=== PATIENT | female | born 1995 | race Caucasian/White ===

== ENCOUNTER 2020-08-11 00:31 | Emergency (ER) | payer OTHER ==
[~2020-08-11 00:31] MED LIST: BENTYL10 MG PO; CERTAGEN1 EACH PO; CIPRO500 MG PO; IBUPROFEN800 MG PO; ILOTYCIN1 GM OU; METRONIDAZOLE500 MG PO; NAPROXEN500 MG PO; NORCO 5-325 TA1 EACH PO; NORCO 7.5-3251 EACH PO; PERCOCET 5-3251 EACH PO; POLYETHYLENE GL17 GM PO; PREDNISONE10 MG PO; PRENATAL FORMU1 EACH PO; SPRINTEC 28 DA1 EACH PO; TRIAMCINOLONE 080 GM TOP; ZOFRAN4 MG PO; ZOFRAN8 MG PO
[2020-08-11] MEDS ORDERED: MEDROL 4MG DOSEP4 MG PO (03:56)
[2020-08-11] MEDS ORDERED: IBUPROFEN800 MG PO (03:56)
[2020-08-11] MEDS ORDERED: NORCO 5-325 TA1 EACH PO (03:56)
[2020-08-11] MEDS ORDERED: ROBAXIN750 MG PO (03:56)
== END 2020-08-11 04:14 | disposition home or self-care (01) ==
LOC: FER 00:31
DX: M62.838 Other muscle spasm (principal); J45.909 Unspecified asthma, uncomplicated; F17.200 Nicotine dependence, unspecified, uncomplicated; Z79.899 Other long term (current) drug therapy
CPT/HCPCS: 99283; J1885; J7512

== ENCOUNTER 2021-07-01 22:10 | Emergency (ER) | payer OTHER ==
[~2021-07-01 22:10] MED LIST changes: +MEDROL 4MG DOSEP4 MG PO; +ROBAXIN750 MG PO
[2021-07-02] MEDS ORDERED: NORCO 5-325 TA1 EACH PO (01:30)
[2021-07-02] MEDS ORDERED: MEDROL 4MG DOSEP4 MG PO (01:30)
[2021-07-02] MEDS ORDERED: IBUPROFEN800 MG PO (01:30)
[2021-07-02] MEDS ORDERED: SUDAFED 24-HOU240 MG PO (01:30)
== END 2021-07-02 02:20 | disposition home or self-care (01) ==
LOC: FER 22:10
DX: H92.02 Otalgia, left ear (principal); F17.200 Nicotine dependence, unspecified, uncomplicated
CPT/HCPCS: 99282; J1885; J7512

== ENCOUNTER 2021-10-01 21:03 | Day surgery (SDCO) | payer OTHER ==
[~2021-10-01] VITALS: Ht 167.6 cm; Wt 109.0 kg
[~2021-10-01 21:03] MED LIST changes: +AUGMENTIN 875-1 EACH PO; +SUDAFED 24-HOU240 MG PO
[2021-10-01 21:48] LABS: BILIRUBIN NEGATIVE (NEGATIVE); BLOOD NEGATIVE Ery/uL (NEGATIVE); CLARITY CLEAR (CLEAR); COLOR YELLOW (YELLOW); GLUCOSE (U) NORMAL (NORMAL); LEUKOCYTES NEGATIVE Leu/uL (NEGATIVE); NITRITE NEGATIVE (NEGATIVE); PROTEIN NEGATIVE (NEGATIVE); SPECIFIC GRAVITY 1.025 (1.001-1.030); UROBILINOGEN 0.2 mg/dL (0.2-1.0)
[2021-10-01 22:16] LABS: BASOPHIL 0.3 % (0-2); EOSINOPHIL 3.5 % (0-5); HCT 41.6 % (37.0-47.0); HGB 13.7 g/dl (12.5-16.0); LYMPHOCYTE 14.3 % (15-48); MCH 27.2 pg (25.0-31.0); MCHC 32.9 g/dL (32.0-36.0); MCV 82.7 fL (78.0-100.0); MONOCYTE 7.3 % (0-12); MPV 9.9 fL (6.0-9.5); NRBC 0; PLT 317 K/uL (150-400); RBC 5.03 M/uL (4.20-5.40); RDW 13.3 % (11.5-14.0); WBC 20.1 K/uL (4.0-10.5)
[2021-10-01 22:36] LABS: ALBUMIN 3.2 g/dL (3.4-5.0); BILIRUBIN - TOTAL 0.6 mg/dL (0.2-1.0); BUN/CREAT RATIO (CALC) 13.1 RATIO; CREATININE 0.61 mg/dL (0.51-0.95); GLOBULIN (CALCULATION) 4.1 g/dL; POTASSIUM 3.9 mmol/L (3.5-5.1); TOTAL PROTEIN 7.3 g/dL (6.4-8.2)
[2021-10-01 22:51] LABS: INFLUENZA A NAA NEGATIVE (NEGATIVE)
[2021-10-01 22:53] LABS: CORONAVIRUS 2019 SARS-COV-2 POSITIVE (NEGATIVE)
[2021-10-02 07:43] LABS: HCT 38.9 % (37.0-47.0); HGB 12.9 g/dl (12.5-16.0); MCH 27.6 pg (25.0-31.0); MCHC 33.2 g/dL (32.0-36.0); MCV 83.1 fL (78.0-100.0); MPV 10.2 fL (6.0-9.5); RBC 4.68 M/uL (4.20-5.40); RDW 13.4 % (11.5-14.0); WBC 20.5 K/uL (4.0-10.5)
[2021-10-02 07:48] LABS: INR 1.25 (0.9-1.2)
[2021-10-02 08:00] LABS: ALBUMIN 3.1 g/dL (3.4-5.0); BILIRUBIN - TOTAL 0.7 mg/dL (0.2-1.0); BUN/CREAT RATIO (CALC) 11.3 RATIO; CREATININE 0.71 mg/dL (0.51-0.95); GLOBULIN (CALCULATION) 3.7 g/dL; POTASSIUM 3.6 mmol/L (3.5-5.1); TOTAL PROTEIN 6.8 g/dL (6.4-8.2)
--- NOTE | 2021-10-02 12:27 | NUR ---
PER DR. ASH HE IS WAITING ON DR. RODRÍGUEZ TO SEE PT BEFORE DISCHARGING HER.
[2021-10-02] MEDS ORDERED: KETOROLAC TROME10 MG PO (14:42)
[2021-10-02] MEDS ORDERED: ONDANSETRON4 MG/2 M2 PO (14:42)
[2021-10-02] MEDS ORDERED: KEFLEX250 MG PO (14:42)
[2021-10-02] MEDS ORDERED: VIBRAMYCIN100 MG PO (14:42)
[2021-10-04 22:08] LABS: CHLAMYDIA TRACHOMATIS, NAA Negative (Negative); NEISSERIA GONORRHOEAE, NAA Negative (Negative)
== END 2021-10-02 17:23 | disposition home or self-care (01) ==
LOC: FER 21:03 → FMS 10-02 01:36
PROVIDERS: Internal Medicine; Nurse Practitioner; ADMIT Internal Medicine
DX: A41.9 Sepsis, unspecified organism (principal); N73.0 Acute parametritis and pelvic cellulitis; N83.292 Other ovarian cyst, left side; U07.1 COVID-19; F17.210 Nicotine dependence, cigarettes, uncomplicated; Z91.012 Allergy to eggs; Z91.048 Other nonmedicinal substance allergy status; Z90.49 Acquired absence of other specified parts of digestive tract; Z97.5 Presence of (intrauterine) contraceptive device
CPT/HCPCS: 36415; 71045; 76830; 80053; 81003; 83605; 83690; 84145; 84702; 85025; 85610; 85730; 86140; 93005; 94010; G0378; J0694; J2405; J2543; J7030; J7050; U0002

== ENCOUNTER 2022-03-04 00:07 | Emergency (ER) | payer OTHER ==
[~2022-03-04 00:07] MED LIST changes: +KEFLEX250 MG PO; +KETOROLAC TROME10 MG PO; +ONDANSETRON4 MG/2 M2 PO; +VIBRAMYCIN100 MG PO
[2022-03-04] MEDS ORDERED: KEFLEX250 MG PO (02:21)
[2022-03-04] MEDS ORDERED: MEDROL 4MG DOSEP4 MG PO (02:21)
== END 2022-03-04 02:27 | disposition home or self-care (01) ==
LOC: FER 00:07
DX: L50.9 Urticaria, unspecified (principal); J45.909 Unspecified asthma, uncomplicated; F17.290 Nicotine dependence, other tobacco product, uncomplicated
CPT/HCPCS: 99282; J7512